=== PATIENT | male | born 1955 | race Caucasian/White ===

== ENCOUNTER 2020-10-24 07:35 | Emergency (ER) | payer OTHER ==
[2020-10-24 07:56] VITALS: BP 132/81; PULSE 85; TEMP 97; BMI 27.4
[2020-10-24 09:22] LABS: EPI CELLS 1 /uL (0-25.1); HYALINE CASTS 1 /uL (0-3.1); URINE APPEARANCE CLEAR; URINE BACTERIA 3 /uL (0-1359); URINE BILIRUBIN NEGATIVE (NEGATIVE); URINE COLOR YELLOW; URINE GLUCOSE (UA) NEGATIVE (NEGATIVE); URINE KETONE NEGATIVE (NEGATIVE); URINE LEUK ESTERASE NEGATIVE (NEGATIVE); URINE NITRITE NEGATIVE (NEGATIVE); URINE PROTEIN NEGATIVE (NEGATIVE); URINE RBC 29 /uL (0-23.9); URINE UROBILINOGEN 0.2 mg/dL (0.2-1.0); URINE WBC 2 /uL (0-25.8)
== END 2020-10-24 09:51 | disposition home or self-care (01) ==
LOC: JER 07:35
DX: N13.9 Obstructive and reflux uropathy, unspecified (principal); N40.0 Benign prostatic hyperplasia without lower urinary tract symptoms
CPT/HCPCS: 81003; 87086; 99283-25

== ENCOUNTER 2020-11-04 07:57 | Inpatient (IN) | payer OTHER ==
[2020-11-04 09:49] LABS: BASO % 0.4 % (0-2.0); HEMATOCRIT 44.6 % (35.4-49); LYMPH % 5.4 % (8-40); MCH 30.7 pg (25.7-33.7); MCHC 33.7 g/dl (32.0-35.9); MEAN PLT VOLUME 6.8 fl (7.5-11.1); MONO % 5.3 % (3.8-10.2); NEUT % 88.9 % (42.8-82.8); PLATELET COUNT 251 K/MM3 (134-434); WHITE BLOOD COUNT 27.4 K/mm3 (4.0-10.0)
[2020-11-04 10:03] LABS: EPI CELLS 0 /uL (0-25.1); HYALINE CASTS 6 /uL (0-3.1); PH,URINE 5.5 (5.0-8.0); URINE APPEARANCE CLOUDY; URINE BACTERIA 1124 /uL (0-1359); URINE BILIRUBIN NEGATIVE (NEGATIVE); URINE COLOR YELLOW; URINE GLUCOSE (UA) NEGATIVE (NEGATIVE); URINE KETONE TRACE (NEGATIVE); URINE LEUK ESTERASE 2+ (NEGATIVE); URINE NITRITE NEGATIVE (NEGATIVE); URINE PROTEIN 1+ (NEGATIVE); URINE WBC 532 /uL (0-25.8)
[2020-11-04 10:10] LABS: CALCIUM 9.3 mg/dL (8.5-10.1)
[2020-11-04 10:11] LABS: ALBUMIN 3.6 g/dl (3.4-5.0); BLOOD UREA NITROGEN 26.6 mg/dL (7-18)
[2020-11-04 10:14] LABS: CREATININE 1.2 mg/dL (0.55-1.3)
[2020-11-04 10:16] LABS: BILIRUBIN,TOTAL 0.8 mg/dL (0.2-1)
[2020-11-04 10:18] LABS: TOT PROT 7.4 g/dl (6.4-8.2)
[2020-11-04] MEDS ORDERED: CEFTRIAXONE 1,000 MG in DEXTROSE 5%-WATER - 50 ML IVPB ONE (10:18)
[2020-11-04] MEDS ORDERED: CEFTRIAXONE 1 GM/50 ML BAG ONE (10:21)
[2020-11-04] MEDS ORDERED: LACTATED RINGERS SOLUTION 1000 ML INFUS.BAG IV ONE (11:02)
[2020-11-04 11:07] LABS: ANISOCYTOSIS 1+; MACROCYTOSIS 0; PLATELET ESTIMATE NORMAL; TEAR DROP CELLS 1+
[2020-11-04] MEDS: ELECTROLYTE-148 SOLN 1,000 ML IV SCH (12:35)
[2020-11-04 12:39] LABS: URINE RBC 879.8 /uL (0-23.9); YEAST NONE SEEN (NEGATIVE)
[2020-11-04] MEDS ORDERED: ACETAMINOPHEN 325 MG TABLET (FP) PO PRN (15:28)
[2020-11-04] MEDS ORDERED: ACETAMINOPHEN 325 MG TABLET (FP) ONE (15:31)
[2020-11-04] MEDS ORDERED: IBUPROFEN 600 MG TABLET (FP) PO ONE ×2 (17:29→17:38)
[2020-11-04 23:00] VITALS: BMI 27.4
[2020-11-05 08:05] LABS: INR 1.01 (0.83-1.09); PROTHROMBIN TIME (PATIENT) 12.4 SEC (9.7-13.0)
[2020-11-05 08:07] LABS: ACTIVATED PTT 27.5 SECONDS (25.2-36.5)
[2020-11-05 08:17] LABS: EOS % 0.8 % (0-4.5); HEMATOCRIT 40.3 % (35.4-49); HEMOGLOBIN 13.8 GM/dL (11.7-16.9); LYMPH % 14.4 % (8-40); MCH 31.4 pg (25.7-33.7); MCHC 34.2 g/dl (32.0-35.9); MEAN CELL VOLUME 91.7 fl (80-96); MONO % 6.9 % (3.8-10.2); NEUT % 76.9 % (42.8-82.8); PLATELET COUNT 251 K/MM3 (134-434); RDW 13.4 % (11.9-15.9); WHITE BLOOD COUNT 14.8 K/mm3 (4.0-10.0)
[2020-11-05 08:35] LABS: BLOOD UREA NITROGEN 18.6 mg/dL (7-18); CALCIUM 8.1 mg/dL (8.5-10.1); MAGNESIUM 2.3 mg/dL (1.8-2.4)
[2020-11-05 08:36] LABS: ALBUMIN 2.7 g/dl (3.4-5.0)
[2020-11-05 08:40] LABS: BILIRUBIN,TOTAL 0.6 mg/dL (0.2-1); CREATININE 0.8 mg/dL (0.55-1.3); PHOSPHOROUS 2.6 mg/dL (2.5-4.9)
[2020-11-05] MEDS ORDERED: DEXTROSE 5%-WATER 100 ML IVPB ONE ×2 (09:53→17:18)
[2020-11-05] MEDS: TAMSULOSIN HCL 0.4 MG CAP PO SCH (09:58)
[2020-11-05] MEDS ORDERED: CEFTRIAXONE 2 GM in DEXTROSE 5%-WATER 2 GM/100 ML BAG IVPB SCH (10:00)
[2020-11-05 11:47] LABS: ANISOCYTOSIS 0; MACROCYTOSIS 0; PLATELET ESTIMATE NORMAL
[2020-11-05] MEDS: IBUPROFEN 400 MG TABLET (FP) PO PRN (16:13)
[2020-11-05] MEDS ORDERED: PIPERACILLIN/TAZOBACTAM 4.5 GM VIAL IVPB ONE (17:18)
[2020-11-05] MEDS: PIPERACILLIN/TAZOB 4.5 GM 4.5 GM in DEXTROSE 5%-WATER 100 ML IVPB SCH (17:35)
[2020-11-06] MEDS ORDERED: PIPERACILLIN/TAZOBACTAM 4.5 GM VIAL IVPB ONE ×3 (00:57→17:29)
[2020-11-06] MEDS ORDERED: DEXTROSE 5%-WATER 100 ML IVPB ONE ×3 (00:58→17:29)
[2020-11-06] MEDS: PIPERACILLIN/TAZOB 4.5 GM 4.5 GM in DEXTROSE 5%-WATER 100 ML IVPB SCH ×3 (02:00→17:38)
[2020-11-06 09:06] LABS: BASO % 0.6 % (0-2.0); EOS % 1.6 % (0-4.5); HEMATOCRIT 43.7 % (35.4-49); HEMOGLOBIN 14.8 GM/dL (11.7-16.9); MCH 31.1 pg (25.7-33.7); MCHC 33.8 g/dl (32.0-35.9); MEAN CELL VOLUME 92.2 fl (80-96); MEAN PLT VOLUME 6.7 fl (7.5-11.1); MONO % 6.8 % (3.8-10.2); PLATELET COUNT 283 K/MM3 (134-434); RBC 4.74 M/mm3 (4.00-5.60); RDW 13.4 % (11.9-15.9); WHITE BLOOD COUNT 11.6 K/mm3 (4.0-10.0)
[2020-11-06] MEDS: TAMSULOSIN HCL 0.4 MG CAP PO SCH (09:25)
[2020-11-06 09:54] LABS: BLOOD UREA NITROGEN 16.2 mg/dL (7-18); CALCIUM 8.7 mg/dL (8.5-10.1)
[2020-11-06 09:58] LABS: BILIRUBIN,TOTAL 0.8 mg/dL (0.2-1)
[2020-11-06 09:59] LABS: TOT PROT 6.5 g/dl (6.4-8.2)
[2020-11-06 11:18] LABS: ANISOCYTOSIS 1+; MACROCYTOSIS 1+; PLATELET ESTIMATE NORMAL
[2020-11-06] MEDS ORDERED: PT OWN MED DRAWER 7, Y5N ONE (15:00)
[2020-11-06] MEDS: NEOMYCIN/POLYMYX/HC OPHTHALMIC SUSPENSION 7.5 ML BOTTLE OU SCH ×2 (15:04→21:11)
[2020-11-06] MEDS: ELECTROLYTE-148 SOLN 1,000 ML IV SCH ×2 (17:35→17:36)
[2020-11-06] MEDS: IBUPROFEN 400 MG TABLET (FP) PO PRN (20:08)
[2020-11-07] MEDS ORDERED: DEXTROSE 5%-WATER 100 ML IVPB ONE ×4 (00:08→22:25)
[2020-11-07] MEDS ORDERED: PIPERACILLIN/TAZOBACTAM 4.5 GM VIAL IVPB ONE ×4 (00:08→22:25)
[2020-11-07] MEDS: PIPERACILLIN/TAZOB 4.5 GM 4.5 GM in DEXTROSE 5%-WATER 100 ML IVPB SCH ×3 (02:33→17:01)
[2020-11-07] MEDS: NEOMYCIN/POLYMYX/HC OPHTHALMIC SUSPENSION 7.5 ML BOTTLE OU SCH ×3 (05:43→21:53)
[2020-11-07] MEDS: TAMSULOSIN HCL 0.4 MG CAP PO SCH (09:23)
[2020-11-07] MEDS: IBUPROFEN 400 MG TABLET (FP) PO PRN (14:28)
[2020-11-08] MEDS: PIPERACILLIN/TAZOB 4.5 GM 4.5 GM in DEXTROSE 5%-WATER 100 ML IVPB SCH ×2 (01:07→09:38)
[2020-11-08] MEDS: NEOMYCIN/POLYMYX/HC OPHTHALMIC SUSPENSION 7.5 ML BOTTLE OU SCH (05:21)
[2020-11-08] MEDS: TAMSULOSIN HCL 0.4 MG CAP PO SCH (08:30)
[2020-11-08] MEDS ORDERED: PIPERACILLIN/TAZOBACTAM 4.5 GM VIAL IVPB ONE (09:35)
[2020-11-08] MEDS ORDERED: DEXTROSE 5%-WATER 100 ML IVPB ONE (09:35)
[2020-11-08 11:26] VITALS: BP 131/83; PULSE 65; TEMP 98.7
== END 2020-11-08 11:59 | disposition home or self-care (01) | DRG 690 ==
LOC: JER 07:57 → JERBED 11:00 → J8W 22:31
PROVIDERS: ADMIT Student in an Organized Health Care Education/Training Program; ATTEND Internal Medicine
DX: N39.0 Urinary tract infection, site not specified (principal); N40.1 Benign prostatic hyperplasia with lower urinary tract symptoms; R33.8 Other retention of urine; D72.829 Elevated white blood cell count, unspecified; R00.0 Tachycardia, unspecified; B96.5 Pseudomonas (aeruginosa) (mallei) (pseudomallei) as the cause of diseases classified elsewhere; R31.9 Hematuria, unspecified
CPT/HCPCS: 36415; 71046-TC-FY; 76775-TC; 76856-TC; 80053; 81003; 82272; 83605; 83735; 84100; 85025; 85610; 85730; 87040; 87086; 87186; 93005; 93010; 99285-25; C9803; U0003